=== PATIENT | male | born 1970 | race Caucasian/White ===

== ENCOUNTER 2016-11-21 18:40 | Emergency (ER) | payer OTHER ==
[~2016-11-21] VITALS: Ht 182.9 cm; Wt 81.7 kg
--- NOTE | ~2016-11-21 | EKG ---
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: VERENA : 1970 Requested By: Blake Ybarra Order Number: [id number] MD: Donell Berg Measurements Intervals [place] Rate: 118 P: 136 SD: 141 QRS: 137 QRSD: 87 T: -8 QT: 316 QTc: 443 Interpretive Statements Incomplete electrocardiogram Sinus or ectopic atrial tachycardia Nonspecific ST and T wave abnormality Baseline wander in lead(s) V1 No previous ECG available for comparison Electronically Signed On 11-22-2016 8:28:36 CDT by Donell Berg [email or web address] <ELECTRONICALLY SIGNED> By: Donell Berg MD, [facility] 11/22/16 0828 [id number] Donell Berg MD, FACC /EPI
[~2016-11-21 18:40] MED LIST: BACTRIM DS TAB1 EACH PO; CLOTRIMAZOLE 1%15 G1 TOP; NORCO 5-325 TA1 EACH PO; PREDNISONE 20 M20 MG PO
[2016-11-21] MEDS ORDERED: DILANTIN100 MG PO ×2 (18:49→19:11)
[2016-11-21 19:09] LABS: ABSOLUTE NEUTROPHILS 10.6 thou/uL (1.4-8.2); BASOPHILS 0.6 % (0.0-2.0); EOSINOPHILS 1.7 % (0.0-3.0); HEMOGLOBIN 15.1 gm/dL (14.0-18.0); LYMPHOCYTES 28.3 % (24.0-44.0); MCHC 34.4 g/dL (28.0-37.0); MCV 87.1 fL (80.0-100.0); MONOCYTES 6.5 % (1.0-8.0); PLATELET COUNT 452 thou/uL (150-400); POLYS 62.9 % (36.0-66.0); RBC 5.05 mil/uL (4.50-6.00); RDW 12.7 % (10.5-14.5); WBC 16.9 thou/uL (4.0-11.0)
[2016-11-21 19:10] LABS: MANUAL DIFF NO
[2016-11-21 19:22] LABS: CALCIUM 9.5 mg/dL (8.5-10.1); CREATININE 1.3 mg/dL (0.6-1.3)
[2016-11-21 19:26] LABS: ALBUMIN 4.5 g/dL (3.4-5.0); DILANTIN 0.8 ug/mL (10.0-20.0); TOTAL BILIRUBIN 0.3 mg/dL (<0.1-1.0); TOTAL PROTEIN 7.7 g/dL (6.4-8.2)
[2016-11-21 21:25] VITALS: BP 113/69
== END 2016-11-21 21:32 | disposition home or self-care (01) ==
LOC: ER 18:40
PROVIDERS: Emergency Medicine
DX: R56.9 Unspecified convulsions (principal); F17.210 Nicotine dependence, cigarettes, uncomplicated

== ENCOUNTER 2016-12-10 12:39 | Emergency (ER) | payer OTHER ==
[~2016-12-10] VITALS: Ht 182.9 cm; Wt 81.7 kg
[~2016-12-10 12:39] MED LIST changes: +DILANTIN100 MG PO
[2016-12-10] MEDS ORDERED: PREDNISONE 20 M20 MG PO (14:02)
[2016-12-10] MEDS ORDERED: NORCO 5-325 TA1 EACH PO (14:10)
[2016-12-10] MEDS ORDERED: TIZANIDINE HCL4 MG PO (14:10)
[2016-12-10] MEDS ORDERED: IBUPROFEN 600600 M1 PO (14:12)
[2016-12-10 14:39] VITALS: BP 125/80
== END 2016-12-10 14:40 | disposition home or self-care (01) ==
LOC: ER 12:39
DX: M53.3 Sacrococcygeal disorders, not elsewhere classified (principal); G40.909 Epilepsy, unspecified, not intractable, without status epilepticus; F17.210 Nicotine dependence, cigarettes, uncomplicated

== ENCOUNTER 2017-03-09 09:33 | Emergency (ER) | payer OTHER ==
[~2017-03-09] VITALS: Ht 182.9 cm; Wt 83.9 kg
[~2017-03-09 09:33] MED LIST changes: +IBUPROFEN 600600 M1 PO; +TIZANIDINE HCL4 MG PO
[2017-03-09 10:17] LABS: ABSOLUTE NEUTROPHILS 5.5 thou/uL (1.4-8.2); BASOPHILS 0.7 % (0.0-2.0); EOSINOPHILS 0.9 % (0.0-3.0); HEMATOCRIT 38.9 % (42.0-52.0); HEMOGLOBIN 13.8 gm/dL (14.0-18.0); LYMPHOCYTES 16.2 % (24.0-44.0); MCHC 35.5 g/dL (28.0-37.0); MCV 87.3 fL (80.0-100.0); MONOCYTES 4.9 % (1.0-8.0); PLATELET COUNT 308 thou/uL (150-400); POLYS 77.3 % (36.0-66.0); RBC 4.45 mil/uL (4.50-6.00); RDW 12.5 % (10.5-14.5); WBC 7.1 thou/uL (4.0-11.0)
[2017-03-09 10:18] LABS: MANUAL DIFF NO
[2017-03-09 10:24] LABS: CALCIUM 9.1 mg/dL (8.5-10.1); CREATININE 0.9 mg/dL (0.7-1.3); POTASSIUM 3.9 mmol/L (3.5-5.1)
[2017-03-09 11:31] LABS: URINE BILIRUBIN NEGATIVE (Negative); URINE BLOOD NEGATIVE (Negative); URINE COLOR YELLOW; URINE GLUCOSE-RANDOM* NEGATIVE (Negative); URINE KETONES NEGATIVE (Negative); URINE LEUKOCYTES-REFLEX NEGATIVE (Negative); URINE PROTEIN (DIPSTICK) TRACE (Negative); URINE UROBILINOGEN 0.2 E.U./dl (0.2-1.0)
[2017-03-09 11:45] LABS: AMP/METHAMP POSITIVE (Negative); BARBITURATES Negative (Negative); BENZODIAZEPINES Negative (Negative); COCAINE Negative (Negative); METHADONE Negative (Negative); OPIATES Negative (Negative); PCP Negative (Negative); THC POSITIVE (Negative)
[2017-03-09] MEDS ORDERED: DILANTIN100 MG PO (12:00)
[2017-03-09 13:02] VITALS: BP 142/78
== END 2017-03-09 12:04 | disposition home or self-care (01) ==
LOC: ER 09:33
PROVIDERS: Emergency Medicine
DX: S20.212A Contusion of left front wall of thorax, initial encounter (principal); G40.909 Epilepsy, unspecified, not intractable, without status epilepticus; F17.210 Nicotine dependence, cigarettes, uncomplicated; F10.99 Alcohol use, unspecified with unspecified alcohol-induced disorder; W18.39XA Other fall on same level, initial encounter; Y93.89 Activity, other specified; Y92.89 Other specified places as the place of occurrence of the external cause; Y99.8 Other external cause status

== ENCOUNTER 2017-03-18 13:01 | Emergency (ER) | payer OTHER ==
[~2017-03-18] VITALS: Ht 182.9 cm; Wt 74.8 kg
--- NOTE | ~2017-03-18 | EKG ---
[place] [address] 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
[2017-03-18] MEDS ORDERED: KEPPRA 500 MG500 M2 PO (14:46)
[2017-03-18] MEDS ORDERED: LIORESAL 10 MG10 MG PO (14:47)
[2017-03-18] MEDS ORDERED: ACETAMINOPHEN-1 EAC1 PO (14:48)
[2017-03-18] MEDS ORDERED: PREDNISONE 10 M10 MG PO (14:48)
[2017-03-18 15:00] LABS: ABSOLUTE NEUTROPHILS 5.1 thou/uL (1.4-8.2); BASOPHILS 0.6 % (0.0-2.0); EOSINOPHILS 1.8 % (0.0-3.0); HEMOGLOBIN 14.7 gm/dL (14.0-18.0); LYMPHOCYTES 25.5 % (24.0-44.0); MCHC 34.1 g/dL (28.0-37.0); MONOCYTES 5.5 % (1.0-8.0); PLATELET COUNT 285 thou/uL (150-400); POLYS 66.6 % (36.0-66.0); RBC 4.89 mil/uL (4.50-6.00); RDW 12.6 % (10.5-14.5); WBC 7.6 thou/uL (4.0-11.0)
[2017-03-18 15:07] LABS: MANUAL DIFF NO
[2017-03-18 15:13] LABS: ANION GAP 3 mmol/L (7-16); BUN 16 mg/dL (7-18); CALCIUM 8.7 mg/dL (8.5-10.1); CHLORIDE 105 mmol/L (98-107); CO2 31 mmol/L (21-32); CREATININE 0.8 mg/dL (0.7-1.3); GLUCOSE 105 mg/dL (74-106); SODIUM 139 mmol/L (136-145)
[2017-03-18 15:17] LABS: TROPONIN-I < 0.04 ng/mL (<0.04-0.07)
[2017-03-18] MEDS ORDERED: ANUSOL-HC25 MG RECTAL (15:51)
[2017-03-18] MEDS ORDERED: COLACE100 MG PO (15:51)
[2017-03-18 17:04] VITALS: BP 118/58
== END 2017-03-18 17:04 | disposition home or self-care (01) ==
LOC: ER 13:01
PROVIDERS: Emergency Medicine
DX: S29.011A Strain of muscle and tendon of front wall of thorax, initial encounter (principal); K64.9 Unspecified hemorrhoids; G43.909 Migraine, unspecified, not intractable, without status migrainosus; F17.210 Nicotine dependence, cigarettes, uncomplicated; X58.XXXA Exposure to other specified factors, initial encounter; Y93.89 Activity, other specified; Y92.89 Other specified places as the place of occurrence of the external cause; Y99.8 Other external cause status

== ENCOUNTER 2017-03-29 14:00 | Emergency (ER) | payer OTHER ==
--- NOTE | ~2017-03-29 | EKG ---
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
[~2017-03-29 14:00] MED LIST changes: +ACETAMINOPHEN-1 EAC1 PO; +ANUSOL-HC25 MG RECTAL; +COLACE100 MG PO; +KEPPRA 500 MG500 M2 PO; +LIORESAL 10 MG10 MG PO; +PREDNISONE 10 M10 MG PO
[2017-03-29 14:09] VITALS: BP 110/69
== END 2017-03-29 16:09 | disposition left against medical advice (07) ==
LOC: ER 14:00
DX: R07.9 Chest pain, unspecified (principal); F17.210 Nicotine dependence, cigarettes, uncomplicated; Z53.21 Procedure and treatment not carried out due to patient leaving prior to being seen by health care provider

== ENCOUNTER 2017-06-03 18:50 | Emergency (ER) | payer OTHER ==
[~2017-06-03] VITALS: Ht 182.9 cm; Wt 72.6 kg
[2017-06-03] MEDS ORDERED: KEPPRA250 MG PO (18:57)
[2017-06-03] MEDS ORDERED: NORCO 5-325 TA1 EACH PO (20:55)
[2017-06-03 21:03] VITALS: BP 107/57
== END 2017-06-03 21:04 | disposition home or self-care (01) ==
LOC: ER 18:50
DX: M25.521 Pain in right elbow (principal); G40.909 Epilepsy, unspecified, not intractable, without status epilepticus; F17.210 Nicotine dependence, cigarettes, uncomplicated; F10.99 Alcohol use, unspecified with unspecified alcohol-induced disorder

== ENCOUNTER 2017-08-29 20:45 | Emergency (ER) | payer OTHER ==
[~2017-08-29] VITALS: Ht 182.9 cm; Wt 77.1 kg
[~2017-08-29 20:45] MED LIST changes: +KEPPRA250 MG PO
[2017-08-29 22:27] LABS: HEMATOCRIT 41.2 % (42.0-52.0); HEMOGLOBIN 14.5 gm/dL (14.0-18.0); MCH 30.4 pg (26.0-34.0); MCHC 35.1 g/dL (28.0-37.0); MCV 86.6 fL (80.0-100.0); PLATELET COUNT 222 thou/uL (150-400); RBC 4.76 mil/uL (4.50-6.00); RDW 12.9 % (10.5-14.5); WBC 6.9 thou/uL (4.0-11.0)
[2017-08-29 22:36] LABS: CALCIUM 8.4 mg/dL (8.5-10.1); CREATININE 0.7 mg/dL (0.7-1.3); POTASSIUM 3.8 mmol/L (3.5-5.1)
[2017-08-29 22:42] LABS: ALBUMIN 3.6 g/dL (3.4-5.0); TOTAL BILIRUBIN 0.2 mg/dL (<0.1-1.0); TOTAL PROTEIN 6.8 g/dL (6.4-8.2)
[2017-08-29 22:50] LABS: URINE BILIRUBIN NEGATIVE (Negative); URINE BLOOD NEGATIVE (Negative); URINE CLARITY CLEAR; URINE COLOR YELLOW; URINE GLUCOSE-RANDOM* NEGATIVE (Negative); URINE KETONES NEGATIVE (Negative); URINE LEUKOCYTES NEGATIVE (Negative); URINE NITRITE NEGATIVE (Negative); URINE PROTEIN (DIPSTICK) NEGATIVE (Negative); URINE SPECIFIC GRAVITY 1.025 (1.005-1.035); URINE UROBILINOGEN 0.2 E.U./dl (0.2-1.0)
[2017-08-29 22:53] LABS: ABSOLUTE NEUTROPHILS 5.8 thou/uL (1.4-8.2); ATYPICAL LYMPHS 3 %
[2017-08-30] MEDS ORDERED: NORCO 7.5-3251 EACH PO (00:37)
[2017-08-30] MEDS ORDERED: LEVSIN0.125 MG PO (00:37)
[2017-08-30 00:50] VITALS: BP 120/70
== END 2017-08-30 00:50 | disposition home or self-care (01) ==
LOC: ER 20:45
PROVIDERS: Physician Assistant
DX: R10.9 Unspecified abdominal pain (principal); M79.1 Myalgia; F17.210 Nicotine dependence, cigarettes, uncomplicated; G40.909 Epilepsy, unspecified, not intractable, without status epilepticus

== ENCOUNTER 2018-01-15 20:46 | Emergency (ER) | payer OTHER ==
[~2018-01-15] VITALS: Ht 182.9 cm; Wt 81.7 kg
[~2018-01-15 20:46] MED LIST changes: +LEVSIN0.125 MG PO; +NORCO 7.5-3251 EACH PO
[2018-01-15 20:59] VITALS: BP 112/66
[2018-01-15] MEDS ORDERED: KEFLEX500 M1 PO (21:24)
== END 2018-01-15 21:34 | disposition home or self-care (01) ==
LOC: ER 20:46
DX: S80.812A Abrasion, left lower leg, initial encounter (principal); L03.116 Cellulitis of left lower limb; G40.909 Epilepsy, unspecified, not intractable, without status epilepticus; F17.210 Nicotine dependence, cigarettes, uncomplicated; X58.XXXA Exposure to other specified factors, initial encounter; Y93.89 Activity, other specified; Y92.89 Other specified places as the place of occurrence of the external cause; Y99.8 Other external cause status